=== PATIENT | male | born 1955 | race Caucasian/White ===

== ENCOUNTER 2019-12-09 10:05 | Outpatient (REF) | payer OTHER, SELFPAY | END 2019-12-09 10:06 | disposition home or self-care (01) | LOC: HO.WFDLDS 10:05 | PROVIDERS: Visit Provider Internal Medicine | DX: Z20.828 Contact with and (suspected) exposure to other viral communicable diseases (principal) | CPT/HCPCS: 87635 ==

== ENCOUNTER 2020-03-18 10:39 | Outpatient (REF) | payer OTHER, SELFPAY | END 2020-03-18 10:40 | disposition home or self-care (01) | LOC: HO.WFDLDS 10:39 | PROVIDERS: Visit Provider Internal Medicine | DX: Z20.822 Contact with and (suspected) exposure to COVID-19 (principal) | CPT/HCPCS: 36415; C9803; U0003 ==

== ENCOUNTER 2020-10-07 07:56 | Outpatient (REF) | payer OTHER, SELFPAY | END 2020-10-07 07:57 | disposition home or self-care (01) | LOC: HO.WFDLDS 07:56 | PROVIDERS: Visit Provider Internal Medicine | DX: Z20.822 Contact with and (suspected) exposure to COVID-19 (principal) | CPT/HCPCS: C9803; U0003; U0005 ==

== ENCOUNTER 2021-02-28 09:27 | Outpatient (REF) | payer OTHER, SELFPAY | END 2021-02-28 09:28 | disposition home or self-care (01) | LOC: HO.WFDLDS 09:27 | PROVIDERS: Visit Provider Internal Medicine | DX: Z20.822 Contact with and (suspected) exposure to COVID-19 (principal) | CPT/HCPCS: C9803; U0003; U0005 ==

== ENCOUNTER 2022-03-17 10:11 | Outpatient (REF) | payer OTHER, SELFPAY ==
[2022-03-17 14:41] LABS: Influenza A PCR NEGATIVE (Negative); Influenza B PCR NEGATIVE (Negative); Resp Syncy Virus RNA Qual PCR NEGATIVE (Negative); SARS COV2 PCR INHOUSE NEGATIVE (Negative)
== END 2022-03-17 10:12 | disposition home or self-care (01) ==
LOC: HO.LAB 10:11
PROVIDERS: Visit Provider Family Medicine
DX: Z20.822 Contact with and (suspected) exposure to COVID-19 (principal)
CPT/HCPCS: 0241U

== ENCOUNTER 2024-12-25 09:46 | Outpatient (AMB) | payer OTHER, SELFPAY ==
--- NOTE | 2024-12-25 10:01 | A.OFFPC_ITS ---
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 Intake Note: patient here for new patient visit Real Estate Analyst Required: No Allergies No Known Allergies Allergy (Verified 12/25/24 10:06) Medication List - Last Reconciled 12/25/24 by Mk Barfield MD No Known Home Meds Tobacco use date assessed: 12/25/24 Fall risk assessment: No Falls in past year Last assessed Fall Risk: 12/25/24 Dental Screening Dental Screen Date: 12/25/24 Did you have a dental visit in the last 12 months?: No Did you have a dental problem in the last 6 months where you did not have access to dental care?: No Was dental information given to patient?: No HPI 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 ?? Prior PCP:? [facility] Last office visit/CPE:? > 1 yr Acute issue(s):? HTN GERD ?? PMHx:?HTN, GERD SurgHx:? None FHx:?Mom: HTN, DM, Thyroid, HLD. Dad: DM, CAD & Bypass. SocHx:? Quit cigs 2 yrs ago. EtOH: 2x a week 2 beers. 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 1. Little interest or pleasure in doing things: not at all 2. Feeling down, depressed, or hopeless: not at all 3. Trouble falling or staying asleep, or sleeping too much: not at all 4. Feeling tired or having little energy: not at all 5. Poor appetite or overeating: not at all 6. Feeling bad about yourself - or that you are a failure or have let yourself or your family down: not at all 7. Trouble concentrating on things, such as reading the newspaper or watching television: not at all 8. Moving or speaking so slowly that other people could have noticed. Or the opposite - being so fidgety or restless that you have been moving around a lot more than usual: not at all 9. Thoughts that you would be better off or of hurting yourself in some way: not at all Total score: 0 Depression Screening Interpretation: Negative Depression Screening Done: Yes 96903 - PHQ-9 Billing: Yes Source: Developed by Drs. Yuri Roman, Dannielle Liz, Moose Macedo and colleagues, with an educational albina from [employer]. Thrive Questionnaire Date Thrive assessed: 12/25/24 I am a: Patient What is your living situation today?: I have a steady place to live Within the past 12 months, did the food you bought not last and you didn't have the money to get more?: Never true Within the past 12 months, did you worry whether your food would run out before you got money to buy more?: Never true Do you have trouble paying for medicines?: No Do you have trouble getting transportation to medical appointments?: No Do you have trouble paying your heating and electricity bill?: No Do you have trouble taking care of your child, family member or friend?: No Do you have trouble with day-to-day activities such as bathing, preparing meals, shopping, managing finances, etc.?: No Are you currently unemployed and looking for a job?: No Are you interested in more education?: No Please select the resources that you would like help with: None Currently or been in a relationship where the following occur: No concerns reported THRIVE Score: 0 AUDIT C Alcohol Use Questionnaire (AUDIT-C) 1. How often do you have a drink containing alcohol?: 2-3 times a week 2. How many drinks containing alcohol do you have on a typical day when you are drinking?: 1 or 2 3. How often do you have six or more drinks on one occasion?: Less than monthly Total Score: 4 CARROL-7 AMB Questionnaire CARROL-7 Date CARROL - 7 assessed: 12/25/24 Feeling nervous, anxious, or on edge: 0 = Not at all Not being able to stop or control worryin = Not at all Worrying too much about different things: 0 = Not at all Trouble relaxin = Not at all Being so restless that it is hard to sit still: 0 = Not at all Becoming easily annoyed or irritable: 0 = Not at all Feeling afraid as if something awful might happen: 0 = Not at all Total CARROL-7 score (0-4 normal; 5-9 mild; 10-14 moderate; 15-21 severe): 0 Source: Developed by Drs. Yuri Roman, Dannielle Liz, Moose Macedo and colleagues, with an educational albina from [employer]. CARROL-7 Assessment Billing CARROL-7 Assessment Tool: CARROL-7 Assessment 49526 Review of Systems Const Denies chills, Denies fatigue, Denies fever(s), Denies headache(s) and Denies weakness ENT Denies dizziness and Denies headache(s) Card Denies chest pain, Denies lightheadedness, Denies dyspnea and Denies other (Palpitations) Resp Denies cough, Denies dyspnea, Denies wheezing and Denies other ( shortness of breath) Musc Denies numbness and Denies tingling Neuro Denies dizziness, Denies headache(s), Denies numbness, Denies tingling, Denies paresthesias and Denies weakness Psych Denies anxiety and Denies depression Endo Denies fatigue Aller/Immun Denies wheezing Physical exam (Primary Care) Vital Signs: Last Vital Signs Temp 98.3 F 12/25/24 10:09 Pulse 67 12/25/24 10:09 Resp 16 12/25/24 10:09 BP 178/77 H 12/25/24 10:09 Pulse Ox 95 12/25/24 10:09 Oxygen Delivery Method Room Air 12/25/24 10:09 BMI result Body Mass Index 34.3 Tobacco/Smoking Status: Tobacco use Status Tobacco use date assessed 12/25/24 12/25/24 10:09 Patient Tobacco Use Status Never used Tobacco 12/25/24 10:09 e-Cigarette/Vaping Use Never Used 10/30/25 10:09 PHQ-9: PHQ-9 Score PHQ-9: Total score 0 12/25/24 10:28 Depression Screening Interpretation: Negative Thrive Assessment: Date of Thrive Assessment Date Thrive assessed 12/25/24 12/25/24 10:05 Currently or been in a relationship where the following occur: No concerns reported Const General: no acute distress and well developed Nutritional Appearance: well nourished Orientation/consciousness: patient oriented x3 HENMT Head: Yes normocephalic and Yes atraumatic Eyes General: appearance normal, both eyes and all related structures Pupils: Equal, round and reactive pupils present EOM: EOMs intact bilaterally Resp Effort & Inspection: normal respiratory effort Auscultation: clear to auscultation bilaterally Cardio Rate: regular rate Rhythm: regular rhythm Heart sounds: S1 normal heart sound present, S2 normal heart sound present, no gallops, Murmur heart sound present (3/6 systolic murmur over aortic region ) and no rubs Neuro General: patient oriented x3 and gait normal Cranial nerves: Yes Equal, round and reactive pupils present Psych Affect: normal affect Coding Level of Care Code New Pt Level 3 (94002) Diagnoses Hypertension I10 GERD (gastroesophageal reflux disease) K21.9 Heart murmur R01.1 History of smoking Z87.891 Laboratory exam ordered as part of routine general medical examination Z00.00 Additional Codes CARROL-7 Assessment Billing - CARROL-7 Assessment Tool: CARROL-7 Assessment [id number] ([id number]) PHQ-9 - 66809 - PHQ-9 Billing: Yes ([id number]) Assessment & Plan Assessment & Plan (1) Hypertension: Code(s): I10 - Essential (primary) hypertension Category: Medical Plan: Blood pressure is too high. Goal is less than 140/90 No chest pain. Patient does have murmur-see below Start losartan (2) GERD (gastroesophageal reflux disease): Code(s): K21.9 - Gastro-esophageal reflux disease without esophagitis Category: Medical Plan: Avoid trigger foods Do not eat too close to bedtime and do not over filled stomach He will let me know if symptoms are worsening or not resolving (3) Heart murmur: Code(s): R01.1 - Cardiac murmur, unspecified Category: Medical Plan: A 3/6 systolic murmur over aortic region Also hypertensive Patient has no chest pain Check echocardiogram (4) History of smoking: Code(s): Z87.891 - Personal history of nicotine dependence Category: Social Hx Plan: Patient has greater than 20 pack year history of smoking He quit 2 years ago. No history of lung disease Referred for lung cancer screening program (5) Laboratory exam ordered as part of routine general medical examination: Code(s): Z00.00 - Encounter for general adult medical examination without abnormal findings Category: Medical Plan: Check labs Orders: Orders Complete Blood Count Auto Diff Today Z00.00 - Encounter for general adult medical examination without abnormal findings Lipid Panel Today Z00.00 - Encounter for general adult medical examination without abnormal findings Prostate Specific Antigen Scr Today Z12.5 - Encounter for screening for malignant neoplasm of prostate AMB EKG-In Office Today I10 - Essential (primary) hypertension Comprehensive [place]. Panel Fast Today Z00.00 - Encounter for general adult medical examination without abnormal findings Microalbumin, Random (w Creat) Today I10 - Essential (primary) hypertension UA CC w/rflx Micro + Cult Today Z00.00 - Encounter for general adult medical examination without abnormal findings TSH reflex Free T4 Today Z00.00 - Encounter for general adult medical examination without abnormal findings CA echo transthoracic complete Today I10 - Essential (primary) hypertension, R01.1 - Cardiac murmur, unspecified Referrals Lung Cancer Screening Referral Z87.891 - Personal history of nicotine dependence Medications: New losartan 50 mg PO DAILY 90 tabs 3RF 90 days
[2024-12-25 10:09] VITALS: BP 178/77; PULSE 67; RESP 16; TEMP 36.8; O2SAT 95; BMI 34.3
--- OUTSIDE RECORDS SUMMARY | 2024-12-25 11:28 | XMS_ITS | Clinical Summary ---
Author Organization [facility] Address [address] [place] [address] Care Team Providers Care Filter Machine Operator Name Role Phone Sigrid Trent MD Primary Care Prov ider Allergies No known active allergies Active Problems Problem Noted Date Diagnosed Date Lumbar herniated disc 03/27/2024 Social History Tobacco Use Types Packs/Day Years Used Date Smoking Tobacco: Never Assessed Sex and Gender Information Value Date Recorded Sex Assigned at Not on file Legal Sex Male 7:31 AM EST Gender Identity Not on file Sexual Orientation Not on file Plan of Treatment Health Maintenance Due Date Last Done Comments Colorectal Cancer Screening: Colonoscopy 1955 DTaP,Tdap,and Td Vaccines (1 - Tdap) 06/11/1975 Pneumococcal Vaccine: 50+ Ye ars (1 of 1 - PCV) 2006 Zoster Vaccines (1 of 2) 2006 Depression Screening 02/27/2024 Abdominal Aortic Aneurysm (A AA) Screen 03/28/2024 Cholesterol Screening (Lipid Panel) 03/28/2024 10/06/2016 Falls Risk Assessment 03/28/2024 Hepatitis C Screening 03/28/2024 Social Influencers of Health Screening 03/28/2024 COVID-19 Vaccine ( - 2023-2 5 season) 2024 Influenza Vaccine (#1) 2024 RSV Immunization Adult Patie nts (1 - 1-dose 75+ series) 06/11/2031 HIB Vaccines Aged Out No longer eligi ble based on patient's age to complete this topic HPV Vaccines Aged Out No longer eligi ble based on patient's age to complete this topic Hepatitis A Vaccines Aged Out No long er eligible based on patient's age to complete this topic Hepatitis B Vaccines Aged Out No long er eligible based on patient's age to complete this topic IPV Vaccines Aged Out No longer eligi ble based on patient's age to complete this topic MMR Vaccines Aged Out No longer eligi ble based on patient's age to complete this topic Meningococcal ACWY Vaccine Aged Out N o longer eligible based on patient's age to complete this topic Meningococcal B Vaccine Aged Out No l onger eligible based on patient's age to complete this topic RSV Immunization Patients Un cynthia 20 months Aged Out No longer eligible b ased on patient's age to complete this topic Varicella Vaccines Aged Out No longer eligible based on patient's age to complete this topic Procedures Procedure Name Priority Date/Time Associated Diagnosis Comments LIPID PANEL Routine 10/06/2016 from Last 3 Months or Most Recently Relevant to Health Maintenance Results * (ABNORMAL) Lipid panel (10/06/2016) LDL/HDL Ratio 4 0 - 4 Triglycerides 165(A) 0 - 150 mg/dL Cholesterol 220(A) 0 - 200 mg/dL HDL 60 >=40 mg/dL LDL Cholesterol 127(A) 0 - 100 mg/dL Blood Venous blood specimen / Unknown us Historical Provider LAB BLOOD ORDERABLES Tracey l Result from Last 3 Months or Most Recently Relevant to Health Maintenance Care Teams Filter Machine Operator Relationship Specialty Start Date End Date Sigrid Trent MD PCP - General Internal Medicine 09/20/16
== END 2024-12-25 10:49 | disposition home or self-care (01) ==
LOC: HO.HMCFM 09:46
PROVIDERS: PCP Family Medicine; Visit Provider Family Medicine
DX: I10 Essential (primary) hypertension (principal); K21.9 Gastro-esophageal reflux disease without esophagitis; R01.1 Cardiac murmur, unspecified; Z87.891 Personal history of nicotine dependence; Z00.00 Encounter for general adult medical examination without abnormal findings

== ENCOUNTER → 2024-12-25 09:46 | Outpatient (BNVA) | payer OTHER, SELFPAY | PROVIDERS: PCP Family Medicine; Visit Provider Family Medicine | DX: Z00.00 Encounter for general adult medical examination without abnormal findings (principal); I10 Essential (primary) hypertension; R01.1 Cardiac murmur, unspecified; K21.9 Gastro-esophageal reflux disease without esophagitis; Z87.891 Personal history of nicotine dependence | CPT/HCPCS: 96127 ==

== ENCOUNTER 2024-12-31 08:24 | Outpatient (REF) | payer OTHER, SELFPAY ==
[2024-12-31 11:14] LABS: MANUAL DIFF FLAG NO
[2024-12-31 11:23] LABS: Hematocrit 43.5 % (42.0-52.0); Hemoglobin 14.7 g/dl (14.0-18.0); Imm Gran Abs Auto 0.02 X10*3/uL (0.00-0.03); Imm Gran Pct Auto 0.4 % (0.0-0.4); Lymphocytes Absolute Auto 1.6 X10*3/uL (1.2-4.9); Mean Corpuscular HGB Conc 33.8 g/dl (31.0-36.0); Mean Corpuscular Hemoglobin 32.4 pg (27.0-33.0); Mean Corpuscular Volume 95.8 fL (80.0-98.0); NRBC Abs Auto 0.000 X10*3/uL (0.0-0.012); NRBC Pct Auto 0.0 /100WBC (0.0-0.2); Platelet Count 247 X10*3/uL (160-400); Red Blood Count 4.54 X10*6/uL (4.60-5.80); White Blood Count 5.2 X10*3/uL (4.8-10.8)
[2024-12-31 11:37] LABS: Appearance Urine Clear; Glucose Urine UA Negative (Negative); PH 5.0 (5.0-9.0); Specific Gravity - Urine 1.020 (1.005-1.025)
[2024-12-31 11:54] LABS: Alanine Aminotransferase 67 U/L (0-40); Albumin Level 4.3 g/dL (3.5-5.0); Alkaline Phosphatase 68 U/L (39-117); Anion Gap 11 (12-20); Aspartate Amino Transferase 46 U/L (5-37); Blood Urea Nitrogen 24 mg/dL (9-16); Calcium 9.2 mg/dL (8.4-10.2); Carbon Dioxide 28 mmol/L (22-29); Chloride 106 mmol/L (96-108); Cholesterol 261 mg/dL (<200); Estimated Glomerular Filt Rate > 60; HDL Cholesterol 50 mg/dL (>40); Potassium 4.3 mmol/L (3.3-5.1); Sodium 141 mmol/L (135-145); Total Protein 7.8 g/dL (6.5-8.0); Triglycerides 200 mg/dL (<150)
[2024-12-31 12:14] LABS: Microalbum/Creatinine Ratio Ur 9.3 ug/mg cr (<30)
== END 2024-12-31 08:25 | disposition home or self-care (01) ==
LOC: HO.WFDLDS 08:24
PROVIDERS: Visit Provider Family Medicine
DX: Z00.00 Encounter for general adult medical examination without abnormal findings (principal); Z12.5 Encounter for screening for malignant neoplasm of prostate; I10 Essential (primary) hypertension
CPT/HCPCS: 36415; 80053; 80061; 81003; 82043; 82570; 84153; 84443; 85025

== ENCOUNTER 2025-01-30 10:16 | Outpatient (REF) | payer OTHER, SELFPAY ==
--- NOTE | ~2025-01-30 | XR_ITS ---
EXAMINATION: XR FOOT, LEFT CLINICAL INFORMATION: S99.922A - Unspecified injury of left foot, initial encounter COMPARISON: None available. TECHNIQUE: AP, lateral, and oblique views of the left foot. FINDINGS: No fracture, dislocation, or suspicious bone lesion. Normal bone mineralization. Normal alignment. 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 Joint spaces are otherwise preserved. No significant arthropathy. Normal plantar arch. There is mild soft tissue swelling of the dorsum of the forefoot. XR/XR foot LT min 3V IMPRESSION: 1. No acute bony abnormalities. 2. Mild soft tissue swelling dorsum of the forefoot. Electronically signed by: Lazarus Dorsey MD 01/30/2025 11:10 AM TISH
--- OUTSIDE RECORDS SUMMARY | 2025-01-30 13:26 | XMS_ITS | Clinical Summary ---
Author Organization [facility] it Address [address] [place] [address] Care Team Providers Care General Matcher Name Role Phone Sigrid Trent MD Primary [...] Health Screening 03/28/2024 COVID-19 Vaccine ( - 2024-2 6 season) 2024 Influenza Vaccine (#1) 2024 RSV [...] Recently Relevant to Health Maintenance Care Teams General Matcher Relationship Specialty Start Date End Date Sigrid Trent MD PCP - General Internal Medicine 09/20/16
== END 2025-01-30 10:17 | disposition home or self-care (01) ==
LOC: HO.HMGCX 10:16
PROVIDERS: PCP Family Medicine; Visit Provider Nurse Practitioner Family
DX: S99.922A Unspecified injury of left foot, initial encounter (principal); R03.0 Elevated blood-pressure reading, without diagnosis of hypertension; W22.8XXA Striking against or struck by other objects, initial encounter
CPT/HCPCS: 73630

== ENCOUNTER 2025-01-30 10:16 | Outpatient (AMB) | payer OTHER, SELFPAY ==
--- NOTE | 2025-01-30 10:21 | MHC.OFFWIV ---
Intake Vital Signs 01/30/25 10:22 Height 5 ft 10.5 in Weight 246 lb BMI 34.8 BP 166/74 H Blood Pressure Location Lt brachial Position Sitting Pulse 71 Pulse Source Pulse Oximeter Temp 97.9 F Temp Source Oral Pulse Oximetry (%) 97 Oxygen Delivery Method Room Air Comment High BP: w/o Losartan x1 wk Intake Visit Reasons: EP Left foot injury Intake Note: pt presents with LT bottom foot pain and ankle pain - states stepped on his grandchilds toy a month ago, and injured ankle after clearing snow the other day Patient Tobacco Use Status: Never used Tobacco Allergies No Known Allergies Allergy (Verified 01/30/25 10:24) Do you need a note to return to daycare/school/sports/work: Yes HPI EP Left foot injury HPI Details 69 year old male patient presents to the [place] clinic today with a left foot injury. He reports that on Sunday, he was stepping into his truck and had all of his weight on his left foot and heard and felt a pop . Since then he has had pain, particularly on the anterior aspect of his foot if weight bearing. He has been wearing an ankle compression sleeve and wearing his high-top boots for extra support. 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 Current occupational exposures/hazards: No Cognitive needs: No Hearing needs: No Vision needs: Yes Review of Systems Const All systems reviewed & are unremarkable except as noted in HPI and below Physical Exam Vital Signs: Last Vital Signs Temp 97.9 F 01/30/25 10:22 Pulse 71 01/30/25 10:22 BP 166/74 H 01/30/25 10:22 Pulse Ox 97 01/30/25 10:22 Oxygen Delivery Method Room Air 01/30/25 10:22 BMI result Body Mass Index 34.8 Const General: cooperative, healthy appearing and no acute distress Resp Effort & Inspection: normal respiratory effort Skin General skin exam: no rashes or lesions noted Extrem Other: mild tenderness dorsum of left foot. No swelling. Normal PT, DP pulses, no edema, normal cap refill, normal ROM ankle Psych Appearance: grossly normal Mental Status: mental status grossly normal Speech and movement: Normal speech and movement present Assessment & Plan Assessment & Plan (1) Injury of left foot: Code(s): S99.922A - Unspecified injury of left foot, initial encounter Qualifiers: Encounter type: initial encounter Qualified Code(s): S99.922A - Unspecified injury of left foot, initial encounter Plan: S/p injury of left foot two days ago. XR revealed mild soft tissue swelling dorsum of the forefoot however no acute bony abnormalities. This was reviewed with the patient in the office. Advised continued rest and elevation/compression of foot. I will also start him on an NSAID, which we reviewed indications, use, possible s/e of. If he does not improve with time and conservative measures, he can return to clinic or f/u with PCP. Patient verbalizes understanding and agrees to plan. Medications: New meloxicam 15 mg PO DAILY 7 tabs 0RF 7 days S99.922A - Unspecified injury of left foot, initial encounter Coding Level of Care Code Est Pt Level 4 (22141) Diagnoses Injury of left foot, initial encounter S99.922A Encounter type: initial encounter
[2025-01-30 10:22] VITALS: BP 166/74; PULSE 71; TEMP 36.6; O2SAT 97; BMI 34.8
== END 2025-01-30 11:16 | disposition home or self-care (01) ==
PROVIDERS: PCP Family Medicine; Visit Provider Nurse Practitioner Family
DX: S99.922A Unspecified injury of left foot, initial encounter (principal)

== ENCOUNTER → 2025-01-30 10:58 | Outpatient (BNV) | payer OTHER, SELFPAY | PROVIDERS: PCP Family Medicine; Visit Provider Radiology Diagnostic Radiology | DX: M79.89 Other specified soft tissue disorders (principal) | CPT/HCPCS: 73630 ==